=== PATIENT | female | born 1985 | race Hispanic/Latino ===

== ENCOUNTER 2018-08-10 17:19 | Emergency (ER) | payer MEDICAID ==
[~2018-08-10 17:19] MED LIST: BENZ-39 PO; DILT300T11 PO; GLYB5TAB8 PO; INSLAN SQ; INSU100V3 SQ; LEVO500T2 PO; METF-446 PO; METH4TAB3 PO; METO25 PO
[2018-08-10] MEDS ORDERED: IPRATROPIUM/ALBUTEROL SULFATE 3 ML SOLUTION IH ONE (19:05)
[2018-08-10] MEDS ORDERED: DEXAMETHASONE SOD PHOSPHATE 10MG/ML 1ML VIAL ONE (19:16)
== END 2018-08-10 19:32 | disposition home or self-care (01) ==
LOC: EDH 17:19
DX: R09.1 Pleurisy (principal); E11.9 Type 2 diabetes mellitus without complications; I10 Essential (primary) hypertension; Z79.4 Long term (current) use of insulin; Z90.49 Acquired absence of other specified parts of digestive tract; Z98.51 Tubal ligation status; Z87.891 Personal history of nicotine dependence
CPT/HCPCS: 71046; 81025; 94640; 96372; 99285; J1100

== ENCOUNTER 2018-12-08 21:09 | Emergency (ER) | payer MEDICAID ==
[2018-12-08] MEDS ORDERED: SODIUM CHLORIDE 0.9% 1000ML 1,000 ML IV ONE (22:18)
[2018-12-08] MEDS ORDERED: ONDANSETRON HCL 4 MG/2 ML VIAL ONE (22:18)
[2018-12-08 22:23] LABS: BASOPHILS % (AUTO) 0.6 % (0.0-5.0); EOSINOPHILS % (AUTO) 0.9 % (0.0-8.0); HEMATOCRIT 36.4 % (36-48); LYMPHOCYTES % (AUTO) 15.9 % (21.0-51.0); MEAN CORPUSCULAR HEMOGLOBIN 25.3 pg (27.0-33.0); MEAN CORPUSCULAR VOLUME 76.8 fL (79-99); MONOCYTES % (AUTO) 3.5 % (3.0-13.0); NEUTROPHILS % (AUTO) 79.1 % (40.0-77.0); PLATELET COUNT (AUTO) 322 K/uL (130-400); RED BLOOD CELL COUNT(AUTO) 4.74 MIL/uL (4.00-5.50); RED CELL DISTRIBUTION WIDTH 17.4 % (11.0-15.5); WHITE BLOOD COUNT (AUTO) 10.5 K/uL (4.8-10.8)
[2018-12-08 22:26] LABS: APPEARANCE,URINE Clear (CLEAR); BILIRUBIN,URINE Negative (NEGATIVE); COLOR,URINE Yellow (YELLOW); GLUCOSE, URINE (UA) Negative (NEGATIVE); KETONES,URINE Negative (NEGATIVE); LEUKOCYTE ESTERASE ,URINE Negative (NEGATIVE); NITRATE,URINE Negative (NEGATIVE); OCCULT BLOOD,URINE Negative (NEGATIVE); PH,URINE 6.5 (5.0-8.0); PROTEIN,URINE Negative (NEGATIVE); UROBILINOGEN,URINE 0.2 mg/dL (0.2-1.0)
[2018-12-08 22:33] LABS: CREATININE 0.7 mg/dL (0.5-1.5); INR 0.96 (0.85-1.15); PARTIAL THROMBOPLASTIN TIME 31.5 SEC (26.3-35.5); POTASSIUM 4.3 mmol/L (3.5-5.1); PROTHROMBIN TIME 10.1 SEC (9.6-11.6)
[2018-12-08 22:38] LABS: ALBUMIN 3.4 g/dL (3.5-5.0); BILIRUBIN,TOTAL 0.2 mg/dL (0.2-1.0); TOTAL PROTEIN, SERUM 8.1 g/dL (6.0-8.3)
== END 2018-12-09 00:43 | disposition home or self-care (01) ==
LOC: EDH 21:09
DX: N83.201 Unspecified ovarian cyst, right side (principal); E11.9 Type 2 diabetes mellitus without complications; I10 Essential (primary) hypertension; Z79.899 Other long term (current) drug therapy
CPT/HCPCS: 36415; 71045; 76856; 80053; 81003; 82948; 83605; 84484; 85025; 85610; 85730; 87040; 87088; 87804 ×2; 96374; 99285; J2405; J7030

== ENCOUNTER 2019-06-01 12:10 | Emergency (ER) | payer MEDICAID | END 2019-06-01 12:50 | disposition home or self-care (01) | LOC: EDH 12:10 | DX: L50.0 Allergic urticaria (principal); E11.9 Type 2 diabetes mellitus without complications; I10 Essential (primary) hypertension; Z72.0 Tobacco use | CPT/HCPCS: 99281 ==

== ENCOUNTER 2019-06-17 06:43 | Emergency (ER) | payer MEDICAID ==
[2019-06-17] MEDS ORDERED: KETOROLAC TROMETHAMINE 60 MG/2 ML VIAL ONE (07:54)
== END 2019-06-17 08:31 | disposition home or self-care (01) ==
LOC: EDH 06:43
DX: M54.32 Sciatica, left side (principal); E11.9 Type 2 diabetes mellitus without complications; I10 Essential (primary) hypertension; Z98.890 Other specified postprocedural states; Z87.891 Personal history of nicotine dependence
CPT/HCPCS: 96372; 99283; J1885

== ENCOUNTER 2019-06-19 18:10 | Emergency (ER) | payer MEDICAID ==
[2019-06-19] MEDS ORDERED: KETOROLAC TROMETHAMINE 60 MG/2 ML VIAL ONE (19:53)
[2019-06-19] MEDS ORDERED: HYDROMORPHONE 1 MG/1 ML AMP ONE (19:54)
[2019-06-19] MEDS ORDERED: CYCLOBENZAPRINE HCL 10 MG TABLET ONE (19:54)
[2019-06-19] MEDS ORDERED: ONDANSETRON ODT 4 MG TAB ONE (19:54)
== END 2019-06-20 00:20 | disposition home or self-care (01) ==
LOC: EDH 18:10
DX: M54.42 Lumbago with sciatica, left side (principal); M79.605 Pain in left leg; I10 Essential (primary) hypertension; E11.9 Type 2 diabetes mellitus without complications; E66.9 Obesity, unspecified; Z68.43 Body mass index [BMI] 50.0-59.9, adult; Z86.718 Personal history of other venous thrombosis and embolism; Z72.0 Tobacco use
CPT/HCPCS: 72170; 81025; 82948; 93971; 96372 ×2; 99285; J1170; J1885

== ENCOUNTER 2019-12-13 15:15 | Inpatient (IN) | payer MEDICAID ==
[~2019-12-13] VITALS: Ht 157.5 cm; Wt 142.7 kg
[2019-12-13 15:40] LABS: APPEARANCE,URINE SL CLOUDY (CLEAR); BILIRUBIN,URINE SMALL (NEGATIVE); COLOR,URINE YELLOW (YELLOW); GLUCOSE, URINE (UA) NEGATIVE (NEGATIVE); KETONES,URINE 5 mg/dL (NEGATIVE); LEUKOCYTE ESTERASE ,URINE MODERATE (NEGATIVE); NITRATE,URINE POSITIVE (NEGATIVE); OCCULT BLOOD,URINE TRACE-INTACT (NEGATIVE); PROTEIN,URINE 100 mg/dL (NEGATIVE)
[2019-12-13 15:53] LABS: HCG,QUAL RESULT NEGATIVE (NEGATIVE)
[2019-12-13 16:02] LABS: BACTERIA,URINE Moderate /HPF (None Seen); MUCUS,URINE Few LPF (None Seen); SQUAMOUS EPITHELIAL CELL,UR Few /HPF (0-2); WBC,URINE 26-50 /HPF (0-1)
[2019-12-13] MEDS ORDERED: CEFTRIAXONE SODIUM 1 GM ONE (16:32)
[2019-12-13] MEDS: CEFTRIAXONE SODIUM 1 GM IV SCH (16:43)
[2019-12-13 17:09] LABS: BASOPHILS % (AUTO) 0.2 % (0.0-5.0); EOSINOPHILS % (AUTO) 1.4 % (0.0-8.0); HEMATOCRIT 35.4 % (36-48); LYMPHOCYTES % (AUTO) 15.2 % (21.0-51.0); MEAN CORPUSCULAR HEMOGLOBIN 24.5 pg (27.0-33.0); MEAN CORPUSCULAR HGB CONC 31.6 g/dL (32.0-36.0); MEAN CORPUSCULAR VOLUME 77.5 fL (79-99); MONOCYTES % (AUTO) 3.3 % (3.0-13.0); NEUTROPHILS % (AUTO) 79.2 % (40.0-77.0); PLATELET COUNT (AUTO) 421 K/uL (130-400); RED BLOOD CELL COUNT(AUTO) 4.57 MIL/uL (4.00-5.50); RED CELL DISTRIBUTION WIDTH 14.4 % (11.0-15.5); WHITE BLOOD COUNT (AUTO) 12.6 K/uL (4.8-10.8)
[2019-12-13 17:33] LABS: ALBUMIN 3.5 g/dL (3.5-5.0); BILIRUBIN,TOTAL 0.2 mg/dL (0.2-1.0); CREATININE 1.1 mg/dL (0.5-1.5); POTASSIUM 3.9 mmol/L (3.5-5.1)
[2019-12-13] MEDS ORDERED: ACETAMINOPHEN 325 MG TAB PO PRN ×2 (20:45)
[2019-12-13] MEDS ORDERED: ONDANSETRON HCL 4 MG/2 ML VIAL IV PRN (20:45)
[2019-12-13] MEDS: INSULIN HUMULIN R 100 UNIT/ML 3ML SQ SCH (21:00)
[2019-12-13 23:30] VITALS: BP 147/91
[2019-12-14] MEDS: SODIUM CHLORIDE 0.9% 1000ML 1,000 ML IV SCH ×4 (00:57→20:27)
[2019-12-14] MEDS ORDERED: INSLAN SQ (01:34)
[2019-12-14] MEDS ORDERED: METF-446 PO (01:34)
[2019-12-14] MEDS ORDERED: INSU100V IV (01:34)
[2019-12-14] MEDS ORDERED: METO25TA6 PO (01:34)
[2019-12-14] MEDS ORDERED: GABA300C PO (01:34)
[2019-12-14] MEDS ORDERED: ATOR10TA69 PO (01:34)
[2019-12-14] MEDS ORDERED: PANT40TA55 PO (01:34)
[2019-12-14] MEDS ORDERED: PHARMACY COMMUNICATION MISC SCH (01:45)
[2019-12-14 03:10] VITALS: BP 144/82
[2019-12-14 05:25] LABS: HEMATOCRIT 32.2 % (36-48); MEAN CORPUSCULAR HEMOGLOBIN 24.5 pg (27.0-33.0); MEAN CORPUSCULAR HGB CONC 31.7 g/dL (32.0-36.0); MEAN CORPUSCULAR VOLUME 77.2 fL (79-99); RED BLOOD CELL COUNT(AUTO) 4.17 MIL/uL (4.00-5.50); RED CELL DISTRIBUTION WIDTH 14.3 % (11.0-15.5)
[2019-12-14 06:04] LABS: CREATININE 0.8 mg/dL (0.5-1.5); POTASSIUM 3.7 mmol/L (3.5-5.1)
[2019-12-14] MEDS: INSULIN HUMULIN R 100 UNIT/ML 3ML SQ SCH ×4 (06:58→20:35)
[2019-12-14 06:59] LABS: HEMOGLOBIN A1C 9.5 % (4.0-6.0)
[2019-12-14 07:30] VITALS: BP 134/66
[2019-12-14] MEDS: DILTIAZEM HCL 120 MG CAP.SR.24H PO SCH (08:54)
[2019-12-14] MEDS: METFORMIN HCL 500 MG TABLET PO SCH (08:54)
[2019-12-14] MEDS: METOPROLOL TARTRATE 25 MG TAB PO SCH ×2 (08:55→20:27)
[2019-12-14] MEDS: DILTIAZEM HCL 180 MG CAP.SR.24H PO SCH (08:55)
[2019-12-14] MEDS: INSULIN GLARGINE 100 UNITS/ML 10 ML VIAL SQ SCH (09:02)
--- NOTE | 2019-12-14 09:44 | NUR ---
Notified Dr. Kramer of new consult.
[2019-12-14] MEDS ORDERED: DIPHENHYDRAMINE HCL 25 MG CAPSULE PO SCH (10:00)
[2019-12-14] MEDS: ENOXAPARIN SODIUM 40 MG/0.4 ML SYRINGE SQ SCH (10:12)
[2019-12-14 11:00] VITALS: BP 130/82
--- NOTE | 2019-12-14 12:40 | NUR ---
LILIAM NOTE/IA MEET WITH PATIENT IN ROOM. PER PATIENT, LIVES WITH SPOUSE AND HER 3 CHILDREN, IS INDEPENDENT WITH ADLS, NO USE OF DME OR COMMUNITY RESOURCES AND FEELS SAFE TO RETURN HOME ONCE DISCHARGED. Addendum: 12/14/19 at 1241 by MARY ADHIKARI RN CM Amended: Links added.
[2019-12-14 16:00] VITALS: BP 134/84
[2019-12-14 19:56] VITALS: BP 140/89
[2019-12-14] MEDS: CEFTRIAXONE SODIUM 1 GM IV SCH (20:27)
[2019-12-14 23:14] VITALS: BP 139/80
[2019-12-15 03:39] VITALS: BP 114/64
[2019-12-15] MEDS: INSULIN HUMULIN R 100 UNIT/ML 3ML SQ SCH ×4 (06:17→23:00)
[2019-12-15 07:55] VITALS: BP 126/87
[2019-12-15] MEDS: INSULIN GLARGINE 100 UNITS/ML 10 ML VIAL SQ SCH (08:55)
[2019-12-15] MEDS: METFORMIN HCL 500 MG TABLET PO SCH (09:01)
[2019-12-15] MEDS: DILTIAZEM HCL 180 MG CAP.SR.24H PO SCH (09:04)
[2019-12-15] MEDS: DILTIAZEM HCL 120 MG CAP.SR.24H PO SCH (09:04)
[2019-12-15] MEDS: METOPROLOL TARTRATE 25 MG TAB PO SCH ×2 (09:05→21:04)
[2019-12-15] MEDS: ENOXAPARIN SODIUM 40 MG/0.4 ML SYRINGE SQ SCH (09:06)
[2019-12-15 11:28] VITALS: BP 143/90
[2019-12-15 16:00] VITALS: BP 151/72
[2019-12-15 20:29] VITALS: BP 152/82
[2019-12-15] MEDS ORDERED: GABAPENTIN 300 MG CAPSULE PO SCH (21:00)
[2019-12-15] MEDS ORDERED: PANTOPRAZOLE SODIUM 40 MG TABLET.DR PO SCH (21:00)
[2019-12-15] MEDS ORDERED: ATORVASTATIN CALCIUM 10 MG TABLET PO SCH (21:00)
[2019-12-15] MEDS: CEFTRIAXONE SODIUM 1 GM IV SCH (21:04)
[2019-12-15 23:59] VITALS: BP 152/82
[2019-12-16 03:59] VITALS: BP 125/78
[2019-12-16] MEDS: SODIUM CHLORIDE 0.9% 1000ML 1,000 ML IV SCH (04:18)
[2019-12-16] MEDS: INSULIN HUMULIN R 100 UNIT/ML 3ML SQ SCH ×2 (06:03→13:09)
[2019-12-16 07:54] VITALS: BP 144/84
[2019-12-16] MEDS: INSULIN GLARGINE 100 UNITS/ML 10 ML VIAL SQ SCH (08:18)
[2019-12-16] MEDS: DILTIAZEM HCL 180 MG CAP.SR.24H PO SCH (08:20)
[2019-12-16] MEDS: METFORMIN HCL 500 MG TABLET PO SCH (08:20)
[2019-12-16] MEDS: DILTIAZEM HCL 120 MG CAP.SR.24H PO SCH (08:21)
[2019-12-16] MEDS: ENOXAPARIN SODIUM 40 MG/0.4 ML SYRINGE SQ SCH (08:21)
[2019-12-16] MEDS: METOPROLOL TARTRATE 25 MG TAB PO SCH (08:21)
[2019-12-16 11:29] VITALS: BP 145/93
== END 2019-12-16 14:45 | disposition home or self-care (01) | DRG 463 ==
LOC: EDH 15:15 → OBSVTOIN 15:16 → EDHIP 15:16 → 3DH 23:37
PROVIDERS: ADMIT Internal Medicine; ATTEND Internal Medicine
DX: N39.0 Urinary tract infection, site not specified (principal); Z68.43 Body mass index [BMI] 50.0-59.9, adult; E66.01 Morbid (severe) obesity due to excess calories; Z87.440 Personal history of urinary (tract) infections; Z98.891 History of uterine scar from previous surgery; E11.9 Type 2 diabetes mellitus without complications; E78.5 Hyperlipidemia, unspecified; I10 Essential (primary) hypertension; Z98.51 Tubal ligation status; R53.81 Other malaise; D64.9 Anemia, unspecified; B96.20 Unspecified Escherichia coli [E. coli] as the cause of diseases classified elsewhere
CPT/HCPCS: 36415; 76770; 80048; 80053; 81001; 81025; 82948; 83036; 85025; 85027; 87077; 87088; 87186; G0378; J0696; J1650; J1815; J7030; Q0163

== ENCOUNTER 2021-05-16 09:05 | Emergency (ER) | payer MEDICAID ==
[~2021-05-16] VITALS: Ht 157.5 cm; Wt 149.7 kg
[~2021-05-16 09:05] MED LIST changes: +ATOR10TA69 PO; -BENZ-39 PO; +GABA300C PO; +INSU100V IV; -INSU100V3 SQ; -LEVO500T2 PO; -METH4TAB3 PO; +METO25TA6 PO; +PANT40TA55 PO
[2021-05-16] MEDS ORDERED: ACETAMINOPHEN 500 MG TABLET PO SCH (09:30)
[2021-05-16 09:47] LABS: BASOPHILS % (AUTO) 0.3 % (0.0-5.0); EOSINOPHILS % (AUTO) 0.3 % (0.0-8.0); HEMATOCRIT 36.4 % (36-48); LYMPHOCYTES % (AUTO) 29.2 % (21.0-51.0); MEAN CORPUSCULAR HEMOGLOBIN 20.9 pg (27.0-33.0); MEAN CORPUSCULAR HGB CONC 28.8 g/dL (32.0-36.0); MEAN CORPUSCULAR VOLUME 72.5 fL (79-99); MONOCYTES % (AUTO) 4.3 % (3.0-13.0); NEUTROPHILS % (AUTO) 65.3 % (40.0-77.0); PLATELET COUNT (AUTO) 218 K/uL (130-400); RED BLOOD CELL COUNT(AUTO) 5.02 MIL/uL (4.00-5.50); RED CELL DISTRIBUTION WIDTH 16.9 % (11.0-15.5); WHITE BLOOD COUNT (AUTO) 3.5 K/uL (4.8-10.8)
[2021-05-16] MEDS ORDERED: ACETAMINOPHEN 500 MG TABLET ONE (09:57)
[2021-05-16 10:02] LABS: ALBUMIN 3.2 g/dL (3.5-5.0); BILIRUBIN,TOTAL 0.2 mg/dL (0.2-1.0); CREATININE 0.8 mg/dL (0.5-1.5); CRP QUANTITATIVE 16.5 mg/L (0.00-9.0); MAGNESIUM 1.5 mg/dL (1.80-2.40); TOTAL PROTEIN, SERUM 8.1 g/dL (6.0-8.3)
[2021-05-16 10:11] LABS: ABG BASE EXCESS -2.7 mmol/L (-2.0-3.0); ABG HCO3 20.6 mmol/L (21.0-28.0); ABG OXYGEN SATURATION 95.2 % (95.0-99.0); ABG PCO2 32 mmHg (32-45)
[2021-05-16 10:23] LABS: B-TYPE NATRIURETIC PEPTIDE < 5 pg/mL (0-100)
[2021-05-16 12:36] LABS: APPEARANCE,URINE Clear (CLEAR); BILIRUBIN,URINE Small (NEGATIVE); COLOR,URINE Dark Yellow (YELLOW); GLUCOSE, URINE (UA) TRACE mg/dL (NEGATIVE); KETONES,URINE Trace mg/dL (NEGATIVE); LEUKOCYTE ESTERASE ,URINE Negative (NEGATIVE); NITRATE,URINE Negative (NEGATIVE); OCCULT BLOOD,URINE Negative (NEGATIVE); PH,URINE 5.5 (5.0-8.0); PROTEIN,URINE POS 1+ mg/dL (NEGATIVE)
[2021-05-16] MEDS ORDERED: IOHEXOL-350 75 ML VIAL IV ONE (13:07)
[2021-05-16 13:17] LABS: BACTERIA,URINE Few /HPF (None Seen); RBC,URINE None Seen /HPF (0-1); WBC,URINE None Seen /HPF (0-1)
[2021-05-16] MEDS ORDERED: NIRM1TAB PO (17:37)
[2021-05-16] MEDS ORDERED: ALBU8.5H8 IH (17:37)
[2021-05-16] MEDS ORDERED: BENZ-39 PO (17:37)
[2021-05-16 17:53] VITALS: BP 121/68
[2021-05-16] MEDS ORDERED: MAGNESIUM OXIDE 400 MG TABLET PO SCH (18:00)
== END 2021-05-16 18:21 | disposition home or self-care (01) ==
LOC: EDH 09:05
DX: U07.1 COVID-19 (principal); J22 Unspecified acute lower respiratory infection; R10.31 Right lower quadrant pain; G89.29 Other chronic pain; E11.65 Type 2 diabetes mellitus with hyperglycemia; R79.89 Other specified abnormal findings of blood chemistry; E78.00 Pure hypercholesterolemia, unspecified; I10 Essential (primary) hypertension; Z79.4 Long term (current) use of insulin; Z90.49 Acquired absence of other specified parts of digestive tract; E66.01 Morbid (severe) obesity due to excess calories; Z68.44 Body mass index [BMI] 60.0-69.9, adult
CPT/HCPCS: 36415; 36600; 71045; 74177; 76830; 80053; 81001; 82550; 82803; 83605; 83735; 83880; 84484; 84703; 85025; 86140; 87635; 87804 ×2; 87880; 93005; 99285; C9803; J3490; Q9967

== ENCOUNTER → 2022-01-09 | Outpatient (CLI) | payer OTHER ==
[~2022-01-09] MED LIST changes: +ALBU8.5H8 IH; +BENZ-39 PO; +NIRM1TAB PO
== END | disposition home or self-care (01) ==
LOC: RAH 13:08
PROVIDERS: ATTEND Internal Medicine Cardiovascular Disease
DX: Z13.6 Encounter for screening for cardiovascular disorders (principal)
CPT/HCPCS: 75571

== ENCOUNTER 2022-01-17 01:45 | Emergency (ER) | payer MEDICAID, OTHER ==
[2022-01-17 01:56] VITALS: BP 128/65
[2022-01-17] MEDS ORDERED: TRIAMCINOLONE ACETONIDE 40 MG/ML 1ML VIAL ONE (02:36)
[2022-01-17] MEDS ORDERED: ORPHENADRINE CITRATE 30 MG/ML ML ONE (02:48)
[2022-01-17] MEDS ORDERED: KETOROLAC 30MG VIAL (30MG/ML) ONE (02:48)
[2022-01-17] MEDS ORDERED: TRIAMCINOLONE ACETONIDE 40 MG/ML 1ML VIAL IM ONE (03:00)
[2022-01-17] MEDS ORDERED: ORPHENADRINE CITRATE 30 MG/ML ML IVP ONE (03:00)
[2022-01-17] MEDS ORDERED: KETOROLAC 30MG VIAL (30MG/ML) IVP ONE (03:00)
[2022-01-17] MEDS ORDERED: CYCL10TA16 PO (03:24)
[2022-01-17] MEDS ORDERED: DICL35CA3 PO (03:24)
== END 2022-01-17 04:15 | disposition home or self-care (01) ==
LOC: EDH 01:45
DX: M54.59 Other low back pain (principal); E11.9 Type 2 diabetes mellitus without complications; E78.00 Pure hypercholesterolemia, unspecified; I10 Essential (primary) hypertension; Z90.49 Acquired absence of other specified parts of digestive tract; Z98.890 Other specified postprocedural states; Z79.899 Other long term (current) drug therapy; Z79.4 Long term (current) use of insulin; Z79.84 Long term (current) use of oral hypoglycemic drugs
CPT/HCPCS: 99284; 20552; 96374; 96375; J3301; J1885; J2360

== ENCOUNTER 2022-01-18 12:23 | Emergency (ER) | payer MEDICAID ==
[~2022-01-18] VITALS: Ht 157.5 cm; Wt 152.0 kg
[~2022-01-18 12:23] MED LIST changes: +CYCL10TA16 PO; +DICL35CA3 PO
[2022-01-18 12:24] VITALS: BP 159/81
[2022-01-18] MEDS ORDERED: KETOROLAC 30MG VIAL (30MG/ML) IVP ONE (12:30)
[2022-01-18] MEDS ORDERED: ORPHENADRINE CITRATE 30 MG/ML ML IVP ONE (12:30)
[2022-01-18] MEDS ORDERED: FENTANYL 50 MCG/HR PATCH TD SCH (13:30)
== END 2022-01-18 14:04 | disposition home or self-care (01) ==
LOC: EDH 12:23
DX: M54.42 Lumbago with sciatica, left side (principal); E11.9 Type 2 diabetes mellitus without complications; E78.00 Pure hypercholesterolemia, unspecified; I10 Essential (primary) hypertension; E66.01 Morbid (severe) obesity due to excess calories; Z68.44 Body mass index [BMI] 60.0-69.9, adult
CPT/HCPCS: 99284; 96374; 96375; J1885; J2360

== ENCOUNTER 2022-02-12 17:05 | Emergency (ER) | payer MEDICAID ==
[~2022-02-12] VITALS: Ht 157.5 cm; Wt 152.0 kg
[2022-02-12 17:33] LABS: BASOPHILS % (AUTO) 0.1 % (0.0-5.0); EOSINOPHILS % (AUTO) 1.3 % (0.0-8.0); HEMATOCRIT 33.2 % (36-48); LYMPHOCYTES % (AUTO) 23.8 % (21.0-51.0); MEAN CORPUSCULAR HEMOGLOBIN 22.4 pg (27.0-33.0); MEAN CORPUSCULAR HGB CONC 30.7 g/dL (32.0-36.0); MEAN CORPUSCULAR VOLUME 72.8 fL (79-99); MONOCYTES % (AUTO) 4.5 % (3.0-13.0); NEUTROPHILS % (AUTO) 69.9 % (40.0-77.0); PLATELET COUNT (AUTO) 377 K/uL (130-400); RED BLOOD CELL COUNT(AUTO) 4.56 MIL/uL (4.00-5.50); RED CELL DISTRIBUTION WIDTH 17.9 % (11.0-15.5); WHITE BLOOD COUNT (AUTO) 13.9 K/uL (4.8-10.8)
[2022-02-12 17:52] LABS: APPEARANCE,URINE CLOUDY (CLEAR); BILIRUBIN,URINE NEGATIVE (NEGATIVE); COLOR,URINE LIGHT-ORANGE (YELLOW); GLUCOSE, URINE (UA) NEGATIVE (NEGATIVE); HCG,QUALITATIVE URINE NEGATIVE (NEGATIVE); KETONES,URINE NEGATIVE (NEGATIVE); LEUKOCYTE ESTERASE ,URINE 25 Leu/uL (NEGATIVE); NITRATE,URINE NEGATIVE (NEGATIVE); OCCULT BLOOD,URINE LARGE (NEGATIVE); PROTEIN,URINE 50 mg/dL (NEGATIVE); UROBILINOGEN,URINE 0.2 mg/dL (0.2-1.0)
[2022-02-12 17:57] LABS: RBC,URINE TNTC /HPF (0-1); WBC,URINE 51-100 /HPF (0-1); YEAST,URINE BUDDING RARE /HPF (None Seen)
[2022-02-12 17:58] LABS: CREATININE 0.7 mg/dL (0.5-1.5); POTASSIUM 3.5 mmol/L (3.5-5.1)
[2022-02-12 18:02] LABS: ALBUMIN 3.2 g/dL (3.5-5.0)
[2022-02-12 18:11] VITALS: BP 128/64
[2022-02-12] MEDS ORDERED: CEPH500B PO (18:12)
== END 2022-02-12 18:18 | disposition home or self-care (01) ==
LOC: EDH 17:05
DX: N93.9 Abnormal uterine and vaginal bleeding, unspecified (principal); N39.0 Urinary tract infection, site not specified; E11.9 Type 2 diabetes mellitus without complications; E78.00 Pure hypercholesterolemia, unspecified; I10 Essential (primary) hypertension; E66.01 Morbid (severe) obesity due to excess calories; Z68.44 Body mass index [BMI] 60.0-69.9, adult; Z88.8 Allergy status to other drugs, medicaments and biological substances; Z79.899 Other long term (current) drug therapy; Z79.84 Long term (current) use of oral hypoglycemic drugs; Z79.4 Long term (current) use of insulin; Z90.49 Acquired absence of other specified parts of digestive tract; Z98.890 Other specified postprocedural states
CPT/HCPCS: 36415; 80053; 81001; 81025; 85025; 87088